=== PATIENT | male | born 1960 | race African-American/Black ===

== ENCOUNTER 2018-10-24 20:30 | Outpatient (CLI) | payer OTHER | END 2018-10-24 20:31 | disposition home or self-care (01) | LOC: SLEEPLAB 20:30 | PROVIDERS: ATTEND Family Medicine | DX: G47.33 Obstructive sleep apnea (adult) (pediatric) (principal); R53.83 Other fatigue; R51 Headache; R06.83 Snoring; E66.9 Obesity, unspecified; I10 Essential (primary) hypertension | CPT/HCPCS: 95811 ==

== ENCOUNTER 2020-09-15 15:15 | Outpatient (CLI) | payer OTHER ==
--- NOTE | 2020-09-15 16:42 | MRI ---
EXAM: MRI right shoulder PROVIDED CLINICAL HISTORY: Acute pain COMPARISON: None FINDINGS: There is a low-grade partial thickness undersurface tear involving the distal conjoined tendon at the footplate. The components of the rotator cuff appear otherwise intact. The long head biceps tendon appears intact and normally located. The glenoid labrum and glenohumeral articular cartilage are suboptimally evaluated in the absence of joint distention, but appear grossly normal. 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 There is mas s effect upon the subjacent supraspinatus. There is greater than physiologic subacromial subdeltoid bursal fluid. Rotator cuff muscular volume appears preserved. No focal concerning regional marrow or muscular signa l abnormality is evident. 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 IMPRESSION: 1. Low-grade partial thickness undersurface tearing involving the distal conjoined tendon at the foot plate. 2. 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 3. Greater than physiologic subacromial subdeltoid bursal fluid, which may reflect bursitis. Correlat e for subacromial impingement.
== END 2020-09-15 15:16 | disposition home or self-care (01) ==
LOC: BICMRI 15:15
PROVIDERS: ATTEND Orthopaedic Surgery
DX: M25.511 Pain in right shoulder (principal); S46.911A Strain of unspecified muscle, fascia and tendon at shoulder and upper arm level, right arm, initial encounter